=== PATIENT | male | born 1945 | race African-American/Black ===

== ENCOUNTER 2023-03-22 22:45 | Inpatient (IN) | payer MEDICARE, OTHER ==
[~2023-03-22] VITALS: Ht 185.4 cm; Wt 83.0 kg
[2023-03-22] MEDS ORDERED: LIDOCAINE 2% JEL UROJET 10 ML MM ONE (23:29)
[2023-03-22 23:52] LABS: HEMOGLOBIN 12.1 g/dL (13.5-17.5); MONOCYTES # (AUTO) 0.1 K/uL (0.1-1.30)
[2023-03-22 23:57] LABS: BASOPHILS % (AUTO) 0.4 % (0.0-2.0); HEMATOCRIT 38 % (39-51); LYMPHOCYTES # (AUTO) 0.2 K/uL (0.8-4.8); LYMPHOCYTES % (AUTO) 2.1 % (20.0-44.0); MEAN CORPUSCULAR HGB CONC 32 g/dl (31.0-36.0); MEAN CORPUSCULAR VOLUME 85 fL (80-96); MONOCYTES % (AUTO) 1.2 % (2.0-12.0); NEUTROPHILS # (AUTO) 8.7 K/uL (1.8-8.9); NEUTROPHILS % (AUTO) 96.3 % (43.0-81.0); PLATELET COUNT (AUTO) 235 K/uL (150-450); RED BLOOD CELL COUNT(AUTO) 4.45 MIL/uL (4.5-6.0)
[2023-03-23] VITALS (7 sets, daily range): BP systolic 90–131; BP diastolic 46–69
[2023-03-23 00:03] LABS: CARBON DIOXIDE 30 mmol/L (21-32); CHLORIDE 102 mmol/L (98-107); CREATININE 2.3 mg/dL (0.6-1.3); GLUCOSE 91 mg/dL (74-106); POTASSIUM 3.2 mmol/L (3.5-5.1); SODIUM SERUM 139 mmol/L (136-145); UREA NITROGEN, BLOOD 58 mg/dL (7-18)
[2023-03-23 00:06] LABS: ALANINE AMINOTRANSFERASE 8 U/L (12-78); ALBUMIN 2.6 g/dL (3.4-5.0); ALKALINE PHOSPHATASE 159 U/L (46-116); ASPARTATE AMINOTRANSFERASE 7 U/L (15-37); BILIRUBIN,DIRECT 0.1 mg/dL (0.0-0.2); BILIRUBIN,TOTAL 0.3 mg/dL (0.2-1.0); LIPASE 132 U/L (73-393); TOTAL PROTEIN, SERUM 6.7 g/dL (6.4-8.2)
[2023-03-23] MEDS ORDERED: MORPHINE SULFATE INJ 2 MG/ML DISP.SYRIN IV ONE (00:30)
[2023-03-23] MEDS ORDERED: ONDANSETRON HCL/PF 4 MG/2 ML VIAL IVP ONE (00:30)
[2023-03-23] MEDS ORDERED: IV NS 0.9% 1,000 ML BAG IV ONE (00:30)
[2023-03-23] MEDS ORDERED: POTASSIUM CHLORIDE 20 MEQ TAB.PRT.SR PO ONE (00:30)
[2023-03-23] MEDS ORDERED: IV NS 0.9% 1,000 ML IV ONE (00:30)
[2023-03-23] MEDS ORDERED: MORPHINE SULFATE INJ 2 MG/ML DISP.SYRIN ONE (00:43)
[2023-03-23] MEDS ORDERED: ONDANSETRON HCL/PF 4 MG/2 ML VIAL ONE (00:43)
[2023-03-23] MEDS ORDERED: Z GUARD REMEDY 4 OZ OINT TP PRN (03:00)
[2023-03-23] MEDS ORDERED: IV 1/2NS 1000 ML 1,000 ML IV PRN (03:00)
[2023-03-23] MEDS ORDERED: ONDANSETRON HCL/PF 4 MG/2 ML VIAL IVP PRN (03:00)
[2023-03-23] MEDS ORDERED: MORPHINE SULFATE INJ 2 MG/ML DISP.SYRIN IV PRN (03:00)
[2023-03-23 03:51] LABS: BILIRUBIN,URINE NEGATIVE (NEGATIVE); COLOR,URINE YELLOW (YELLOW); LEUKOCYTE ESTERASE ,URINE 3+ (NEGATIVE); NITRITE, URINE NEGATIVE (NEGATIVE); PH,URINE 5.5 (5.0-8.0); PROTEIN,URINE 2+ mg/dl (NEGATIVE); UGLUCOSE NEGATIVE (NEGATIVE); UROBILINOGEN,URINE 0.2 EU/dL (0.2)
[2023-03-23 04:03] LABS: BACTERIA,URINE 3+ /HPF (None Seen); WBC,URINE TOO NUMEROUS TO COUN /HPF (0-3)
[2023-03-23 04:04] LABS: MUCUS,URINE Moderate /LPF (None Seen); SQUAMOUS EPITHELIAL CELL,UR None Seen /HPF (None Seen)
[2023-03-23] MEDS ORDERED: CEFTRIAXONE 1 G VIAL ONE (05:48)
[2023-03-23] MEDS: CEFTRIAXONE 1 G in IV D5W 50 ML IV SCH (05:55)
[2023-03-23] MEDS: PANTOPRAZOLE 40 MG TABLET.DR PO SCH (08:04)
[2023-03-23] MEDS: ACETAMINOPHEN 325 MG TABLET PO PRN (09:22)
[2023-03-23 11:35] LABS: IRON, SERUM 11 ug/dl (50-175); TOTAL IRON BINDING CAPACITY 169 ug/dl (250-450)
[2023-03-23] MEDS ORDERED: FOLI0.4T6 PO (13:46)
[2023-03-23] MEDS ORDERED: ALBU8.5H8 IH (13:46)
[2023-03-23] MEDS ORDERED: IBUP-1957 PO (13:46)
[2023-03-23] MEDS ORDERED: DOCU250C14 PO (13:46)
[2023-03-23] MEDS ORDERED: PANT40TA2 PO (13:46)
[2023-03-23] MEDS ORDERED: BISO5TAB20 PO (13:46)
[2023-03-23] MEDS ORDERED: ASPI-1169 PO (13:46)
[2023-03-23] MEDS ORDERED: MELA5TAB PO (13:46)
[2023-03-23] MEDS ORDERED: ACET-2605 PO (13:46)
[2023-03-23] MEDS ORDERED: FURO-144 PO (13:46)
[2023-03-23] MEDS ORDERED: HYDR-3980 PO (13:46)
[2023-03-23] MEDS ORDERED: CELE200C PO (13:46)
[2023-03-23] MEDS ORDERED: AMLO-212 PO (13:46)
[2023-03-23] MEDS ORDERED: SULF500T8 PO (13:46)
[2023-03-23] MEDS ORDERED: NITR0.4T48 SL (13:46)
[2023-03-23] MEDS ORDERED: SENN-261 PO (13:46)
[2023-03-23] MEDS ORDERED: SPIR25TA PO (13:46)
[2023-03-23] MEDS ORDERED: NYST500P2 TD (13:46)
[2023-03-23] MEDS ORDERED: IPRATROPIUM NEB FS 0.5 MG/2.5 ML AMPUL.NEB NEB PRN (15:00)
[2023-03-23] MEDS ORDERED: SENNOSIDES 8.6 MG TABLET PO PRN (15:00)
[2023-03-23] MEDS ORDERED: SPIRONOLACTONE 25 MG TABLET PO SCH (15:00)
[2023-03-23] MEDS: BISOPROLOL FUMARATE 5 MG TABLET PO SCH (15:00)
[2023-03-23] MEDS ORDERED: FUROSEMIDE 40 MG TABLET PO SCH (15:00)
[2023-03-23] MEDS ORDERED: ALBUTEROL FS 2.5 MG/0.5 ML VIAL.NEB NEB PRN (15:00)
[2023-03-23] MEDS ORDERED: NITROGLYCERIN 0.4 MG/TAB BOTTLE SL PRN (15:00)
[2023-03-23] MEDS: ASPIRIN 81 MG TAB.CHEW PO SCH (15:19)
[2023-03-23] MEDS: SULFASALAZINE 500 MG TABLET PO SCH ×2 (15:19→21:16)
[2023-03-23] MEDS: AMLODIPINE BESYLATE 5 MG TABLET PO SCH (15:20)
[2023-03-23 16:17] LABS: ABG BASE EXCESS -0.9 mmol/L; ABG PCO2 67.3 mmHg (35.0-45.0); ABG PH 7.234 (7.350-7.450); ABG PO2 216.4 mmHg (75.0-100.0); COHb 0.1 % (0.5-1.5); MetHb 0.4 % (0.0-1.5); O2Hb 98.7 % (94.0-97.0); SITE, ABG Right Radial; VENT MODE, BG 8 LPM SIMPLE MASK
[2023-03-23] MEDS: ALBUTEROL FS 2.5 MG/0.5 ML VIAL.NEB NEB SCH ×3 (17:30→23:34)
[2023-03-23] MEDS: IPRATROPIUM NEB FS 0.5 MG/2.5 ML AMPUL.NEB NEB SCH ×3 (17:30→23:34)
[2023-03-23] MEDS: DOCUSATE SODIUM 250 MG CAPSULE PO SCH (17:42)
[2023-03-23] MEDS: IV 1/2NS 1000 ML 1,000 ML IV PRN (17:57)
[2023-03-23 19:51] LABS: ABG BASE EXCESS -1.8 mmol/L; ABG OXYGEN SATURATION 97.1 % (92.0-98.5); ABG PCO2 50.5 mmHg (35.0-45.0); ABG PH 7.309 (7.350-7.450); ABG PO2 96.3 mmHg (75.0-100.0); AaDO2 130.8 mmHg; COHb 0.4 % (0.5-1.5); MetHb 0.2 % (0.0-1.5); O2Hb 96.5 % (94.0-97.0); SITE, ABG Right Radial
[2023-03-23 20:28] LABS: BILIRUBIN,URINE NEGATIVE (NEGATIVE); COLOR,URINE YELLOW (YELLOW); LEUKOCYTE ESTERASE ,URINE 3+ (NEGATIVE); NITRITE, URINE NEGATIVE (NEGATIVE); PH,URINE 5.5 (5.0-8.0); PROTEIN,URINE 2+ mg/dl (NEGATIVE); UGLUCOSE NEGATIVE (NEGATIVE); UROBILINOGEN,URINE 0.2 EU/dL (0.2)
[2023-03-23 20:36] LABS: BACTERIA,URINE Many /HPF (None Seen); RBC,URINE 21-50 /HPF (0-2); SQUAMOUS EPITHELIAL CELL,UR Moderate /HPF (None Seen); WBC,URINE 51-80 /HPF (0-3)
[2023-03-23] MEDS: methylPREDNISolone SOD SUCC 40 MG/ML VIAL IV SCH (21:15)
[2023-03-24] VITALS (19 sets, daily range): BP systolic 99–156; BP diastolic 48–100
[2023-03-24] MEDS: IV 1/2NS 1000 ML 1,000 ML IV PRN ×2 (01:40→14:24)
[2023-03-24] MEDS: ALBUTEROL FS 2.5 MG/0.5 ML VIAL.NEB NEB SCH ×5 (03:05→19:55)
[2023-03-24] MEDS: IPRATROPIUM NEB FS 0.5 MG/2.5 ML AMPUL.NEB NEB SCH ×5 (03:05→19:55)
[2023-03-24] MEDS ORDERED: MORPHINE SULFATE INJ 2 MG/ML DISP.SYRIN IV PRN (03:30)
[2023-03-24] MEDS: CEFTRIAXONE 1 G in IV D5W 50 ML IV SCH (03:35)
[2023-03-24 04:41] LABS: BASOPHILS % (AUTO) 0.1 % (0.0-2.0); EOSINOPHILS % (AUTO) 0.1 % (0.0-6.0); HEMATOCRIT 34 % (39-51); HEMOGLOBIN 10.5 g/dL (13.5-17.5); LYMPHOCYTES # (AUTO) 0.4 K/uL (0.8-4.8); LYMPHOCYTES % (AUTO) 2.4 % (20.0-44.0); MEAN CORPUSCULAR HGB CONC 31 g/dl (31.0-36.0); MEAN CORPUSCULAR VOLUME 87 fL (80-96); MONOCYTES # (AUTO) 0.7 K/uL (0.1-1.30); MONOCYTES % (AUTO) 3.7 % (2.0-12.0); NEUTROPHILS # (AUTO) 16.3 K/uL (1.8-8.9); NEUTROPHILS % (AUTO) 93.7 % (43.0-81.0); PLATELET COUNT (AUTO) 210 K/uL (150-450); RED BLOOD CELL COUNT(AUTO) 3.88 MIL/uL (4.5-6.0); WHITE BLOOD COUNT (AUTO) 17.4 K/uL (4.3-11.0)
[2023-03-24] MEDS: methylPREDNISolone SOD SUCC 40 MG/ML VIAL IV SCH ×3 (04:58→20:52)
[2023-03-24 05:15] LABS: CALCIUM, SERUM 8.9 mg/dL (8.5-10.1); CARBON DIOXIDE 27 mmol/L (21-32); CHLORIDE 100 mmol/L (98-107); CREATININE 2.3 mg/dL (0.6-1.3); GLUCOSE 104 mg/dL (74-106); MAGNESIUM 2.1 mg/dL (1.8-2.4); PHOSPHORUS 4.2 mg/dL (2.5-4.9); POTASSIUM 4.5 mmol/L (3.5-5.1); SODIUM SERUM 136 mmol/L (136-145); UREA NITROGEN, BLOOD 61 mg/dL (7-18)
[2023-03-24] MEDS: ASPIRIN 81 MG TAB.CHEW PO SCH (08:17)
[2023-03-24] MEDS: BISOPROLOL FUMARATE 5 MG TABLET PO SCH (08:18)
[2023-03-24] MEDS: AMLODIPINE BESYLATE 5 MG TABLET PO SCH (08:18)
[2023-03-24] MEDS: PANTOPRAZOLE 40 MG TABLET.DR PO SCH (08:18)
[2023-03-24] MEDS: SULFASALAZINE 500 MG TABLET PO SCH ×2 (08:18→21:08)
[2023-03-24] MEDS: IV 1/2NS 1000 ML 1,000 ML IV SCH (16:48)
[2023-03-24] MEDS: DOCUSATE SODIUM 250 MG CAPSULE PO SCH (17:20)
[2023-03-25] VITALS: BP 123/65
[2023-03-25] MEDS: ALBUTEROL FS 2.5 MG/0.5 ML VIAL.NEB NEB SCH ×4 (00:37→20:11)
[2023-03-25] MEDS: IPRATROPIUM NEB FS 0.5 MG/2.5 ML AMPUL.NEB NEB SCH ×4 (00:37→20:11)
[2023-03-25] MEDS: IV 1/2NS 1000 ML 1,000 ML IV SCH ×2 (01:21→12:02)
[2023-03-25 04:00] VITALS: BP 135/71
[2023-03-25] MEDS: CEFTRIAXONE 1 G in IV D5W 50 ML IV SCH (04:03)
[2023-03-25] MEDS: methylPREDNISolone SOD SUCC 40 MG/ML VIAL IV SCH ×3 (04:06→21:11)
[2023-03-25 05:54] LABS: BASOPHILS % (AUTO) 0.2 % (0.0-2.0); HEMATOCRIT 27 % (39-51); HEMOGLOBIN 8.8 g/dL (13.5-17.5); LYMPHOCYTES # (AUTO) 0.2 K/uL (0.8-4.8); LYMPHOCYTES % (AUTO) 1.4 % (20.0-44.0); MEAN CORPUSCULAR HGB CONC 32 g/dl (31.0-36.0); MEAN CORPUSCULAR VOLUME 85 fL (80-96); MONOCYTES # (AUTO) 0.7 K/uL (0.1-1.30); MONOCYTES % (AUTO) 4.5 % (2.0-12.0); NEUTROPHILS # (AUTO) 15.5 K/uL (1.8-8.9); NEUTROPHILS % (AUTO) 93.9 % (43.0-81.0); PLATELET COUNT (AUTO) 215 K/uL (150-450); RED BLOOD CELL COUNT(AUTO) 3.21 MIL/uL (4.5-6.0); WHITE BLOOD COUNT (AUTO) 16.4 K/uL (4.3-11.0)
[2023-03-25 06:07] LABS: ALANINE AMINOTRANSFERASE < 6 U/L (12-78); ALKALINE PHOSPHATASE 98 U/L (46-116); ASPARTATE AMINOTRANSFERASE 6 U/L (15-37); BILIRUBIN,TOTAL 0.1 mg/dL (0.2-1.0); CALCIUM, SERUM 8.6 mg/dL (8.5-10.1); CARBON DIOXIDE 27 mmol/L (21-32); CHLORIDE 101 mmol/L (98-107); CREATININE 1.9 mg/dL (0.6-1.3); GLUCOSE 239 mg/dL (74-106); MAGNESIUM 2.3 mg/dL (1.8-2.4); PHOSPHORUS 2.4 mg/dL (2.5-4.9); POTASSIUM 4.2 mmol/L (3.5-5.1); SODIUM SERUM 133 mmol/L (136-145); TOTAL PROTEIN, SERUM 5.5 g/dL (6.4-8.2); UREA NITROGEN, BLOOD 63 mg/dL (7-18)
[2023-03-25] MEDS: ACETAMINOPHEN 325 MG TABLET PO PRN ×3 (06:27→22:51)
[2023-03-25] MEDS: PANTOPRAZOLE 40 MG TABLET.DR PO SCH (07:59)
[2023-03-25 08:00] VITALS: BP 121/46
[2023-03-25] MEDS: SULFASALAZINE 500 MG TABLET PO SCH ×2 (08:51→21:12)
[2023-03-25] MEDS: ASPIRIN 81 MG TAB.CHEW PO SCH (08:51)
[2023-03-25] MEDS: AMLODIPINE BESYLATE 5 MG TABLET PO SCH (08:51)
[2023-03-25] MEDS: BISOPROLOL FUMARATE 5 MG TABLET PO SCH (08:52)
[2023-03-25 12:00] VITALS: BP 125/56
[2023-03-25] MEDS ORDERED: CEFTRIAXONE 2 G in IV D5W 100 ML IV SCH ×2 (14:00→22:00)
[2023-03-25 16:00] VITALS: BP 137/56
[2023-03-25] MEDS ORDERED: NEUTRA PHOS 1 POWD.PACKET PO ONE (16:00)
[2023-03-25 16:13] LABS: HEMOGLOBIN 9.1 g/dL (13.5-17.5)
[2023-03-25] MEDS: DOCUSATE SODIUM 250 MG CAPSULE PO SCH (17:03)
[2023-03-25 20:00] VITALS: BP 146/61
[2023-03-26] VITALS: BP 135/58
[2023-03-26] MEDS: IV 1/2NS 1000 ML 1,000 ML IV SCH (00:32)
[2023-03-26] MEDS: IPRATROPIUM NEB FS 0.5 MG/2.5 ML AMPUL.NEB NEB SCH ×4 (01:46→19:53)
[2023-03-26] MEDS: ALBUTEROL FS 2.5 MG/0.5 ML VIAL.NEB NEB SCH ×4 (01:47→19:53)
[2023-03-26 04:00] VITALS: BP 140/58
[2023-03-26] MEDS: methylPREDNISolone SOD SUCC 40 MG/ML VIAL IV SCH ×3 (05:46→14:00)
[2023-03-26 06:06] LABS: BASOPHILS % (AUTO) 0.1 % (0.0-2.0); HEMATOCRIT 30 % (39-51); HEMOGLOBIN 9.6 g/dL (13.5-17.5); LYMPHOCYTES # (AUTO) 0.4 K/uL (0.8-4.8); LYMPHOCYTES % (AUTO) 2.4 % (20.0-44.0); MEAN CORPUSCULAR HGB CONC 32 g/dl (31.0-36.0); MEAN CORPUSCULAR VOLUME 85 fL (80-96); MONOCYTES # (AUTO) 0.8 K/uL (0.1-1.30); MONOCYTES % (AUTO) 5.2 % (2.0-12.0); NEUTROPHILS # (AUTO) 13.7 K/uL (1.8-8.9); NEUTROPHILS % (AUTO) 92.3 % (43.0-81.0); PLATELET COUNT (AUTO) 223 K/uL (150-450); RED BLOOD CELL COUNT(AUTO) 3.53 MIL/uL (4.5-6.0); WHITE BLOOD COUNT (AUTO) 14.8 K/uL (4.3-11.0)
[2023-03-26 06:27] LABS: CHLORIDE 104 mmol/L (98-107); POTASSIUM 4.5 mmol/L (3.5-5.1); SODIUM SERUM 135 mmol/L (136-145)
[2023-03-26 06:28] LABS: CALCIUM, SERUM 8.6 mg/dL (8.5-10.1); CARBON DIOXIDE 26 mmol/L (21-32); CREATININE 1.4 mg/dL (0.6-1.3); GLUCOSE 160 mg/dL (74-106); MAGNESIUM 2.3 mg/dL (1.8-2.4); PHOSPHORUS 2.9 mg/dL (2.5-4.9); UREA NITROGEN, BLOOD 49 mg/dL (7-18)
[2023-03-26] MEDS: PANTOPRAZOLE 40 MG TABLET.DR PO SCH (07:51)
[2023-03-26 08:00] VITALS: BP 98/62
[2023-03-26] MEDS: ASPIRIN 81 MG TAB.CHEW PO SCH (08:41)
[2023-03-26] MEDS: SULFASALAZINE 500 MG TABLET PO SCH ×2 (08:41→21:45)
[2023-03-26] MEDS: BISOPROLOL FUMARATE 5 MG TABLET PO SCH (08:42)
[2023-03-26] MEDS: AMLODIPINE BESYLATE 5 MG TABLET PO SCH (08:42)
[2023-03-26] MEDS: IV 1/2NS 1000 ML 1,000 ML IV PRN (10:56)
[2023-03-26 12:00] VITALS: BP 147/73
[2023-03-26 16:00] VITALS: BP 140/80
[2023-03-26] MEDS: DOCUSATE SODIUM 250 MG CAPSULE PO SCH (17:13)
[2023-03-26 18:27] LABS: ABG BASE EXCESS 0.7 mmol/L; ABG OXYGEN SATURATION 94.6 % (92.0-98.5); ABG PCO2 42.2 mmHg (35.0-45.0); ABG PH 7.401 (7.350-7.450); ABG PO2 75.2 mmHg (75.0-100.0); AaDO2 66.5 mmHg; COHb 0.3 % (0.5-1.5); MetHb 0.3 % (0.0-1.5); SITE, ABG Right Radial; VENT MODE, BG NASAL CANNULA
[2023-03-26 20:00] VITALS: BP 160/85
[2023-03-26] MEDS: ACETAMINOPHEN 325 MG TABLET PO PRN (21:45)
[2023-03-26] MEDS: MEROPENEM 1 G in IV NS 0.9% 100 ML IV SCH (21:45)
[2023-03-27] VITALS: BP 135/68
[2023-03-27] MEDS: IV 1/2NS 1000 ML 1,000 ML IV PRN ×2 (00:53→11:25)
[2023-03-27] MEDS: IPRATROPIUM NEB FS 0.5 MG/2.5 ML AMPUL.NEB NEB SCH ×4 (01:29→19:22)
[2023-03-27] MEDS: ALBUTEROL FS 2.5 MG/0.5 ML VIAL.NEB NEB SCH ×4 (01:29→19:22)
[2023-03-27 04:00] VITALS: BP 155/69
[2023-03-27 06:42] LABS: CALCIUM, SERUM 8.2 mg/dL (8.5-10.1); CHLORIDE 105 mmol/L (98-107); CREATININE 1.3 mg/dL (0.6-1.3); GLUCOSE 99 mg/dL (74-106); POTASSIUM 3.7 mmol/L (3.5-5.1); SODIUM SERUM 137 mmol/L (136-145); UREA NITROGEN, BLOOD 39 mg/dL (7-18)
[2023-03-27 06:48] LABS: EOSINOPHILS % (AUTO) 0.2 % (0.0-6.0); HEMATOCRIT 32 % (39-51); LYMPHOCYTES # (AUTO) 1.1 K/uL (0.8-4.8); LYMPHOCYTES % (AUTO) 8.2 % (20.0-44.0); MEAN CORPUSCULAR HGB CONC 31 g/dl (31.0-36.0); MEAN CORPUSCULAR VOLUME 85 fL (80-96); MONOCYTES % (AUTO) 7.3 % (2.0-12.0); NEUTROPHILS # (AUTO) 11.2 K/uL (1.8-8.9); NEUTROPHILS % (AUTO) 84.3 % (43.0-81.0); PLATELET COUNT (AUTO) 265 K/uL (150-450); RED BLOOD CELL COUNT(AUTO) 3.75 MIL/uL (4.5-6.0); WHITE BLOOD COUNT (AUTO) 13.3 K/uL (4.3-11.0)
[2023-03-27 06:56] LABS: CARBON DIOXIDE 27 mmol/L (21-32); MAGNESIUM 2.1 mg/dL (1.8-2.4); PHOSPHORUS 2.3 mg/dL (2.5-4.9)
[2023-03-27 08:00] VITALS: BP 125/69
[2023-03-27] MEDS: PANTOPRAZOLE 40 MG TABLET.DR PO SCH (08:19)
[2023-03-27] MEDS: methylPREDNISolone SOD SUCC 40 MG/ML VIAL IV SCH (08:19)
[2023-03-27] MEDS: ASPIRIN 81 MG TAB.CHEW PO SCH (08:20)
[2023-03-27] MEDS: AMLODIPINE BESYLATE 5 MG TABLET PO SCH (08:20)
[2023-03-27] MEDS: MEROPENEM 1 G in IV NS 0.9% 100 ML IV SCH ×2 (08:22→21:16)
[2023-03-27] MEDS: SULFASALAZINE 500 MG TABLET PO SCH ×2 (08:22→21:17)
[2023-03-27] MEDS: BISOPROLOL FUMARATE 5 MG TABLET PO SCH (08:23)
[2023-03-27 12:00] VITALS: BP 154/77
[2023-03-27] MEDS: ACETAMINOPHEN 325 MG TABLET PO PRN ×2 (14:37→21:25)
[2023-03-27 16:00] VITALS: BP 167/78
[2023-03-27] MEDS ORDERED: K PHOS NEUTRAL 250 MG TABLET PO ONE (17:00)
[2023-03-27] MEDS: DOCUSATE SODIUM 250 MG CAPSULE PO SCH (17:56)
[2023-03-27 21:04] VITALS: BP 176/73
[2023-03-27] MEDS ORDERED: hydrALAZINE HCL IV 20 MG VIAL IV PRN (21:30)
[2023-03-28 00:07] VITALS: BP 150/82
[2023-03-28] MEDS: ALBUTEROL FS 2.5 MG/0.5 ML VIAL.NEB NEB SCH ×4 (00:57→19:59)
[2023-03-28] MEDS: IPRATROPIUM NEB FS 0.5 MG/2.5 ML AMPUL.NEB NEB SCH ×4 (00:57→19:59)
[2023-03-28 04:00] VITALS: BP 155/83
[2023-03-28] MEDS: ACETAMINOPHEN 325 MG TABLET PO PRN ×4 (04:06→22:21)
[2023-03-28 05:43] LABS: BASOPHILS % (AUTO) 0.3 % (0.0-2.0); EOSINOPHILS % (AUTO) 0.6 % (0.0-6.0); HEMATOCRIT 33 % (39-51); HEMOGLOBIN 10.6 g/dL (13.5-17.5); LYMPHOCYTES # (AUTO) 1.1 K/uL (0.8-4.8); LYMPHOCYTES % (AUTO) 8.2 % (20.0-44.0); MEAN CORPUSCULAR HGB CONC 32 g/dl (31.0-36.0); MEAN CORPUSCULAR VOLUME 85 fL (80-96); MONOCYTES # (AUTO) 1.1 K/uL (0.1-1.30); MONOCYTES % (AUTO) 8.7 % (2.0-12.0); NEUTROPHILS # (AUTO) 10.8 K/uL (1.8-8.9); NEUTROPHILS % (AUTO) 82.2 % (43.0-81.0); PLATELET COUNT (AUTO) 261 K/uL (150-450); RED BLOOD CELL COUNT(AUTO) 3.91 MIL/uL (4.5-6.0); WHITE BLOOD COUNT (AUTO) 13.1 K/uL (4.3-11.0)
[2023-03-28 06:21] LABS: CALCIUM, SERUM 8.4 mg/dL (8.5-10.1); MAGNESIUM 2.1 mg/dL (1.8-2.4); PHOSPHORUS 1.9 mg/dL (2.5-4.9); POTASSIUM 3.6 mmol/L (3.5-5.1)
[2023-03-28 08:00] VITALS: BP 145/89
[2023-03-28] MEDS ORDERED: NEPRO VAN 237 ML CAN PO PRN (08:00)
[2023-03-28] MEDS: PANTOPRAZOLE 40 MG TABLET.DR PO SCH (08:23)
[2023-03-28] MEDS: methylPREDNISolone SOD SUCC 40 MG/ML VIAL IV SCH (08:24)
[2023-03-28] MEDS: ASPIRIN 81 MG TAB.CHEW PO SCH (08:24)
[2023-03-28] MEDS: MEROPENEM 1 G in IV NS 0.9% 100 ML IV SCH ×2 (08:24→20:07)
[2023-03-28] MEDS: SULFASALAZINE 500 MG TABLET PO SCH ×2 (08:25→20:07)
[2023-03-28] MEDS: BISOPROLOL FUMARATE 5 MG TABLET PO SCH (08:25)
[2023-03-28] MEDS: AMLODIPINE BESYLATE 5 MG TABLET PO SCH (08:25)
[2023-03-28] MEDS ORDERED: K PHOS NEUTRAL 250 MG TABLET PO ONE (09:30)
[2023-03-28 12:00] VITALS: BP 124/62
[2023-03-28] MEDS: IV 1/2NS 1000 ML 1,000 ML IV PRN (14:16)
[2023-03-28 16:00] VITALS: BP 148/62
[2023-03-28] MEDS: DOCUSATE SODIUM 250 MG CAPSULE PO SCH (17:15)
[2023-03-28 20:00] VITALS: BP 145/70
[2023-03-29] VITALS: BP 141/71
[2023-03-29] MEDS: ALBUTEROL FS 2.5 MG/0.5 ML VIAL.NEB NEB SCH ×4 (01:44→20:26)
[2023-03-29] MEDS: IPRATROPIUM NEB FS 0.5 MG/2.5 ML AMPUL.NEB NEB SCH ×4 (01:44→20:26)
[2023-03-29] MEDS: IV 1/2NS 1000 ML 1,000 ML IV PRN ×2 (03:16→17:59)
[2023-03-29 04:00] VITALS: BP 140/78
[2023-03-29 06:06] LABS: CALCIUM, SERUM 8.1 mg/dL (8.5-10.1); CREATININE 0.9 mg/dL (0.6-1.3); POTASSIUM 3.5 mmol/L (3.5-5.1)
[2023-03-29 08:00] VITALS: BP 144/70
[2023-03-29] MEDS: SULFASALAZINE 500 MG TABLET PO SCH ×2 (09:01→21:17)
[2023-03-29] MEDS: ASPIRIN 81 MG TAB.CHEW PO SCH (09:01)
[2023-03-29] MEDS: AMLODIPINE BESYLATE 5 MG TABLET PO SCH (09:01)
[2023-03-29] MEDS: MEROPENEM 1 G in IV NS 0.9% 100 ML IV SCH ×2 (09:01→21:04)
[2023-03-29] MEDS: PANTOPRAZOLE 40 MG TABLET.DR PO SCH (09:01)
[2023-03-29] MEDS: BISOPROLOL FUMARATE 5 MG TABLET PO SCH (09:02)
[2023-03-29] MEDS: MORPHINE SULFATE INJ 2 MG/ML DISP.SYRIN IV PRN ×3 (09:03→21:30)
[2023-03-29] MEDS: methylPREDNISolone SOD SUCC 40 MG/ML VIAL IV SCH (09:12)
[2023-03-29 12:00] VITALS: BP 124/67
[2023-03-29 16:00] VITALS: BP 124/58
[2023-03-29] MEDS: DOCUSATE SODIUM 250 MG CAPSULE PO SCH (18:00)
[2023-03-29 22:36] VITALS: BP 138/61
[2023-03-30 00:52] VITALS: BP 136/53
[2023-03-30] MEDS: ALBUTEROL FS 2.5 MG/0.5 ML VIAL.NEB NEB SCH ×4 (01:45→19:39)
[2023-03-30] MEDS: IPRATROPIUM NEB FS 0.5 MG/2.5 ML AMPUL.NEB NEB SCH ×4 (01:45→19:39)
[2023-03-30 04:30] VITALS: BP 133/53
[2023-03-30] MEDS ORDERED: ALBUTEROL HALF STRENGTH 1.25 MG/3 ML VIAL.NEB ONE (07:09)
[2023-03-30 07:48] LABS: BASOPHILS % (AUTO) 0.1 % (0.0-2.0); EOSINOPHILS % (AUTO) 1.1 % (0.0-6.0); HEMATOCRIT 31 % (39-51); HEMOGLOBIN 9.7 g/dL (13.5-17.5); LYMPHOCYTES # (AUTO) 1.3 K/uL (0.8-4.8); LYMPHOCYTES % (AUTO) 6.6 % (20.0-44.0); MEAN CORPUSCULAR HGB CONC 31 g/dl (31.0-36.0); MEAN CORPUSCULAR VOLUME 86 fL (80-96); MONOCYTES # (AUTO) 1.1 K/uL (0.1-1.30); MONOCYTES % (AUTO) 5.7 % (2.0-12.0); NEUTROPHILS # (AUTO) 16.5 K/uL (1.8-8.9); NEUTROPHILS % (AUTO) 86.5 % (43.0-81.0); PLATELET COUNT (AUTO) 253 K/uL (150-450); RED BLOOD CELL COUNT(AUTO) 3.61 MIL/uL (4.5-6.0); WHITE BLOOD COUNT (AUTO) 19.1 K/uL (4.3-11.0)
[2023-03-30 08:00] VITALS: BP 136/55
[2023-03-30 08:00] LABS: CALCIUM, SERUM 8.2 mg/dL (8.5-10.1); CREATININE 0.8 mg/dL (0.6-1.3); MAGNESIUM 1.9 mg/dL (1.8-2.4); PHOSPHORUS 2.9 mg/dL (2.5-4.9); POTASSIUM 3.7 mmol/L (3.5-5.1)
[2023-03-30] MEDS: PANTOPRAZOLE 40 MG TABLET.DR PO SCH (08:12)
[2023-03-30] MEDS: methylPREDNISolone SOD SUCC 40 MG/ML VIAL IV SCH (08:12)
[2023-03-30] MEDS: ASPIRIN 81 MG TAB.CHEW PO SCH (08:12)
[2023-03-30] MEDS: AMLODIPINE BESYLATE 5 MG TABLET PO SCH (08:12)
[2023-03-30] MEDS: BISOPROLOL FUMARATE 5 MG TABLET PO SCH (08:13)
[2023-03-30] MEDS: SULFASALAZINE 500 MG TABLET PO SCH ×2 (08:13→20:08)
[2023-03-30] MEDS: MEROPENEM 1 G in IV NS 0.9% 100 ML IV SCH ×2 (08:38→20:06)
[2023-03-30] MEDS: IV 1/2NS 1000 ML 1,000 ML IV PRN (09:20)
[2023-03-30 12:00] VITALS: BP 150/66
[2023-03-30] MEDS ORDERED: ALBUTEROL FS 2.5 MG/0.5 ML VIAL.NEB ONE (13:35)
[2023-03-30 16:00] VITALS: BP 149/67
[2023-03-30] MEDS: DOCUSATE SODIUM 250 MG CAPSULE PO SCH (17:02)
[2023-03-30 20:00] VITALS: BP 145/69
[2023-03-30] MEDS: MORPHINE SULFATE INJ 2 MG/ML DISP.SYRIN IV PRN (20:07)
[2023-03-31] VITALS: BP 140/69
[2023-03-31] MEDS: IV 1/2NS 1000 ML 1,000 ML IV PRN ×2 (00:02→15:25)
[2023-03-31] MEDS: ALBUTEROL FS 2.5 MG/0.5 ML VIAL.NEB NEB SCH (01:32)
[2023-03-31] MEDS: IPRATROPIUM NEB FS 0.5 MG/2.5 ML AMPUL.NEB NEB SCH ×4 (01:32→19:56)
[2023-03-31 04:00] VITALS: BP 127/59
[2023-03-31 08:00] VITALS: BP 162/73
[2023-03-31] MEDS: ASPIRIN 81 MG TAB.CHEW PO SCH (08:14)
[2023-03-31] MEDS: AMLODIPINE BESYLATE 5 MG TABLET PO SCH (08:15)
[2023-03-31] MEDS: MEROPENEM 1 G in IV NS 0.9% 100 ML IV SCH ×2 (08:15→20:34)
[2023-03-31] MEDS: PANTOPRAZOLE 40 MG TABLET.DR PO SCH (08:15)
[2023-03-31] MEDS: methylPREDNISolone SOD SUCC 40 MG/ML VIAL IV SCH (08:15)
[2023-03-31] MEDS: BISOPROLOL FUMARATE 5 MG TABLET PO SCH (08:16)
[2023-03-31] MEDS: SULFASALAZINE 500 MG TABLET PO SCH ×2 (08:33→20:34)
[2023-03-31 12:00] VITALS: BP 155/73
[2023-03-31 12:03] LABS: BASOPHILS % (AUTO) 0.1 % (0.0-2.0); EOSINOPHILS % (AUTO) 1.1 % (0.0-6.0); HEMATOCRIT 29 % (39-51); HEMOGLOBIN 9.3 g/dL (13.5-17.5); LYMPHOCYTES # (AUTO) 0.9 K/uL (0.8-4.8); LYMPHOCYTES % (AUTO) 5.9 % (20.0-44.0); MEAN CORPUSCULAR HGB CONC 32 g/dl (31.0-36.0); MEAN CORPUSCULAR VOLUME 84 fL (80-96); MONOCYTES # (AUTO) 0.9 K/uL (0.1-1.30); MONOCYTES % (AUTO) 6.1 % (2.0-12.0); NEUTROPHILS # (AUTO) 12.7 K/uL (1.8-8.9); NEUTROPHILS % (AUTO) 86.8 % (43.0-81.0); PLATELET COUNT (AUTO) 273 K/uL (150-450); RED BLOOD CELL COUNT(AUTO) 3.42 MIL/uL (4.5-6.0); WHITE BLOOD COUNT (AUTO) 14.6 K/uL (4.3-11.0)
[2023-03-31 12:21] LABS: CALCIUM, SERUM 7.9 mg/dL (8.5-10.1); CREATININE 0.8 mg/dL (0.6-1.3); POTASSIUM 3.9 mmol/L (3.5-5.1)
[2023-03-31] MEDS: ALBUTEROL HALF STRENGTH 1.25 MG/3 ML VIAL.NEB NEB SCH ×2 (13:16→19:56)
[2023-03-31] MEDS: MORPHINE SULFATE INJ 2 MG/ML DISP.SYRIN IV PRN (15:35)
[2023-03-31 16:00] VITALS: BP 155/71
[2023-03-31] MEDS: DOCUSATE SODIUM 250 MG CAPSULE PO SCH (17:07)
[2023-03-31 20:00] VITALS: BP 144/69
[2023-04-01] VITALS: BP 149/59
[2023-04-01] MEDS: ALBUTEROL HALF STRENGTH 1.25 MG/3 ML VIAL.NEB NEB SCH ×4 (00:37→19:36)
[2023-04-01] MEDS: IPRATROPIUM NEB FS 0.5 MG/2.5 ML AMPUL.NEB NEB SCH ×4 (00:37→19:36)
[2023-04-01 04:00] VITALS: BP 149/59
[2023-04-01 07:28] LABS: BASOPHILS % (AUTO) 0.3 % (0.0-2.0); EOSINOPHILS % (AUTO) 1.9 % (0.0-6.0); HEMATOCRIT 26 % (39-51); HEMOGLOBIN 8.4 g/dL (13.5-17.5); LYMPHOCYTES # (AUTO) 0.8 K/uL (0.8-4.8); LYMPHOCYTES % (AUTO) 6.3 % (20.0-44.0); MEAN CORPUSCULAR HGB CONC 32 g/dl (31.0-36.0); MEAN CORPUSCULAR VOLUME 84 fL (80-96); MONOCYTES # (AUTO) 0.8 K/uL (0.1-1.30); MONOCYTES % (AUTO) 6.5 % (2.0-12.0); NEUTROPHILS # (AUTO) 10.9 K/uL (1.8-8.9); PLATELET COUNT (AUTO) 256 K/uL (150-450); RED BLOOD CELL COUNT(AUTO) 3.11 MIL/uL (4.5-6.0); WHITE BLOOD COUNT (AUTO) 12.8 K/uL (4.3-11.0)
[2023-04-01] MEDS: PANTOPRAZOLE 40 MG TABLET.DR PO SCH (07:50)
[2023-04-01 07:52] LABS: CREATININE 0.7 mg/dL (0.6-1.3); MAGNESIUM 1.6 mg/dL (1.8-2.4); PHOSPHORUS 2.1 mg/dL (2.5-4.9)
[2023-04-01 08:00] VITALS: BP 148/68
[2023-04-01] MEDS: SULFASALAZINE 500 MG TABLET PO SCH ×2 (08:49→20:34)
[2023-04-01] MEDS: methylPREDNISolone SOD SUCC 40 MG/ML VIAL IV SCH (08:49)
[2023-04-01] MEDS: AMLODIPINE BESYLATE 5 MG TABLET PO SCH (08:50)
[2023-04-01] MEDS: ASPIRIN 81 MG TAB.CHEW PO SCH (08:50)
[2023-04-01] MEDS: BISOPROLOL FUMARATE 5 MG TABLET PO SCH (08:51)
[2023-04-01] MEDS: MEROPENEM 1 G in IV NS 0.9% 100 ML IV SCH ×2 (08:52→20:34)
[2023-04-01] MEDS ORDERED: NEUTRA PHOS 1 POWD.PACKET PO ONE (11:00)
[2023-04-01] MEDS: Magnesium 1GM/D5W 100ML PREMIX 100 ML IV SCH ×2 (11:09→12:20)
[2023-04-01 12:00] VITALS: BP 155/75
[2023-04-01] MEDS ORDERED: ERTA1VIA4 IJ ×3 (12:07→13:32)
[2023-04-01] MEDS ORDERED: METH4TAB3 PO ×2 (12:10→13:32)
[2023-04-01 16:00] VITALS: BP 155/82
[2023-04-01] MEDS: DOCUSATE SODIUM 250 MG CAPSULE PO SCH (17:28)
[2023-04-01 20:00] VITALS: BP 157/74
[2023-04-01] MEDS: IV 1/2NS 1000 ML 1,000 ML IV PRN (23:38)
[2023-04-02] VITALS: BP 153/74
[2023-04-02] MEDS: IPRATROPIUM NEB FS 0.5 MG/2.5 ML AMPUL.NEB NEB SCH ×2 (01:21→07:59)
[2023-04-02] MEDS: ALBUTEROL HALF STRENGTH 1.25 MG/3 ML VIAL.NEB NEB SCH ×2 (01:21→07:59)
[2023-04-02 04:00] VITALS: BP 152/70
[2023-04-02 07:32] LABS: MAGNESIUM 1.9 mg/dL (1.8-2.4); PHOSPHORUS 2.5 mg/dL (2.5-4.9)
[2023-04-02] MEDS: PANTOPRAZOLE 40 MG TABLET.DR PO SCH (07:50)
[2023-04-02] MEDS: MEROPENEM 1 G in IV NS 0.9% 100 ML IV SCH (09:38)
[2023-04-02] MEDS: methylPREDNISolone SOD SUCC 40 MG/ML VIAL IV SCH (09:38)
[2023-04-02] MEDS: ASPIRIN 81 MG TAB.CHEW PO SCH (09:39)
[2023-04-02] MEDS: BISOPROLOL FUMARATE 5 MG TABLET PO SCH (09:40)
[2023-04-02] MEDS: SULFASALAZINE 500 MG TABLET PO SCH (09:40)
[2023-04-02 09:41] VITALS: BP 157/69
[2023-04-02] MEDS: AMLODIPINE BESYLATE 5 MG TABLET PO SCH (09:41)
== END 2023-04-02 11:40 | DRG 871 ==
LOC: ER 22:50 → MEDSG1 03-23 03:41 → TELE1 03-23 16:33 → ICU 03-23 16:53 → TELE1 03-24 17:47
PROVIDERS: ADMIT Nurse Practitioner Acute Care; ATTEND Nurse Practitioner Acute Care
PROC: 5A09357 Assistance with Respiratory Ventilation, Less than 24 Consecutive Hours, Continuous Positive Airway Pressure (ICD-10-PCS; principal; 2023-03-27)
DX: A41.51 Sepsis due to Escherichia coli [E. coli] (principal); J96.22 Acute and chronic respiratory failure with hypercapnia; N17.0 Acute kidney failure with tubular necrosis; J44.1 Chronic obstructive pulmonary disease with (acute) exacerbation; N12 Tubulo-interstitial nephritis, not specified as acute or chronic; N39.0 Urinary tract infection, site not specified; K56.7 Ileus, unspecified; J90 Pleural effusion, not elsewhere classified; J98.11 Atelectasis; E86.0 Dehydration; I10 Essential (primary) hypertension; I11.0 Hypertensive heart disease with heart failure; I50.9 Heart failure, unspecified; E86.1 Hypovolemia; E87.6 Hypokalemia; K52.9 Noninfective gastroenteritis and colitis, unspecified; K57.30 Diverticulosis of large intestine without perforation or abscess without bleeding; I71.40 Abdominal aortic aneurysm, without rupture, unspecified; D63.8 Anemia in other chronic diseases classified elsewhere; Z87.891 Personal history of nicotine dependence; E83.39 Other disorders of phosphorus metabolism; E83.42 Hypomagnesemia; E88.09 Other disorders of plasma-protein metabolism, not elsewhere classified; I27.20 Pulmonary hypertension, unspecified; N20.0 Calculus of kidney; Z20.822 Contact with and (suspected) exposure to COVID-19
CPT/HCPCS: 36415; 36600; 71045-TC; 74018; 76770-TC; 80048-TC; 80053-TC; 80076-TC; 81001; 82570-TC; 82803-TC; 82962-TC; 83540-TC; 83690-TC; 83735-TC; 84100-TC; 84300-TC; 85025-TC; 85027-TC; 86803; 87040-TC; 87081-TC; 87086-TC; 87806; 93307-TC; 94660; 94762-TC; 94799-TC; 97110-TC; 97112-TC; 97530-TC; A4223; A4349; C9803; G0378; J0360; J0696; J2185; J2270; J2405; J2920; J3475; J3490; J7030; J7060